=== PATIENT | female | born 1955 | race Caucasian/White ===

== ENCOUNTER 2019-01-13 11:03 | Outpatient (CLI) | payer OTHER ==
[2014-07-26 01:01] VITALS: BP 159/79
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
== END 2019-01-13 12:03 ==
LOC: OUT 11:03
PROVIDERS: ATTEND Nurse Practitioner Adult Health
DX: M19.012 Primary osteoarthritis, left shoulder (principal)
CPT/HCPCS: 99203